=== PATIENT | male | born 2000 | race Hispanic/Latino ===

== ENCOUNTER 2018-04-17 14:21 | Outpatient (CLI) | payer OTHER ==
--- NOTE | 2018-04-17 15:59 | MRI ---
MRI OF LEFT KNEE PERFORMED WITHOUT CONTRAST ENHANCEMENT: 04/17/18 HISTORY: Knee pain after being tackled playing soccer. The anterior as well as posterior cruciate ligaments are intact. Medial and lateral menisci are normal in shape and appearance. Medial and lateral collateral ligaments and iliotibial band regions appear unremarkable. The patellar articular cartilage is intact. Mediolateral patellar retinaculum and quadriceps and patellar tendons are normal. There is a probable fibroxanthoma of the distal femoral shaft. Further characterization with plain fi lm would be recommended. IMPRESSION: 1. No evidence of meniscal or cruciate ligament injury. 2. 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 A plain film of this area to confirm the benign nature of this is recommended. POS: [facility]
== END 2018-04-17 14:22 | disposition home or self-care (01) ==
LOC: MRI 14:21
PROVIDERS: ATTEND Pediatrics Sports Medicine
DX: M23.92 Unspecified internal derangement of left knee (principal)